=== PATIENT | female | born 1955 | race Caucasian/White ===

== ENCOUNTER 2017-08-01 15:56 | Emergency (ER) | payer MEDICARE ==
[2017-08-01] MEDS ORDERED: ACETAMINOPHEN EXTRA STRENGTH 500 MG TABLET ONE ×2 (16:34→16:51)
[2017-08-01] MEDS ORDERED: CYCLOBENZAPRINE HCL 10 MG TABLET ONE (16:34)
[2017-08-01 17:47] LABS: BASOPHILS % (AUTO) 0.8 % (0.0-5.0); EOSINOPHILS % (AUTO) 0.3 % (0.0-8.0); HEMATOCRIT 33.9 % (36-48); LYMPHOCYTES % (AUTO) 23.3 % (21.0-51.0); MEAN CORPUSCULAR HEMOGLOBIN 28.4 pg (27.0-33.0); MEAN CORPUSCULAR HGB CONC 34.8 g/dL (32.0-36.0); MEAN CORPUSCULAR VOLUME 81.5 fL (79-99); MONOCYTES % (AUTO) 5.2 % (3.0-13.0); NEUTROPHILS % (AUTO) 70.4 % (40.0-77.0); PLATELET COUNT (AUTO) 489 K/uL (130-400); RED BLOOD CELL COUNT(AUTO) 4.16 MIL/uL (4.00-5.50); RED CELL DISTRIBUTION WIDTH 15.3 % (11.0-15.5); WHITE BLOOD COUNT (AUTO) 8.7 K/uL (4.8-10.8)
[2017-08-01 17:56] LABS: CREATININE 0.8 mg/dL (0.5-1.5); POTASSIUM 3.8 mmol/L (3.5-5.1)
[2017-08-01 17:58] LABS: INR 0.99 (0.85-1.15); PARTIAL THROMBOPLASTIN TIME 29.3 SEC (26.3-35.5); PROTHROMBIN TIME 10.4 SEC (9.6-11.6)
[2017-08-01 18:01] LABS: ALBUMIN 4.2 g/dL (3.5-5.0); BILIRUBIN,TOTAL 0.3 mg/dL (0.2-1.0); TOTAL PROTEIN, SERUM 7.7 g/dL (6.0-8.3)
[2017-08-01] MEDS ORDERED: LABETALOL HCL 5 MG/ML 20ML VIAL IV ONE (18:28)
== END 2017-08-01 19:12 | disposition home or self-care (01) ==
LOC: EDH 15:56
DX: G89.29 Other chronic pain (principal); M54.5 Low back pain; M54.6 Pain in thoracic spine; I10 Essential (primary) hypertension; E78.5 Hyperlipidemia, unspecified; Z72.0 Tobacco use; Y08.89XA Assault by other specified means, initial encounter; Y93.89 Activity, other specified; Y92.59 Other trade areas as the place of occurrence of the external cause; Y99.8 Other external cause status
CPT/HCPCS: 36415; 72125; 72128; 72131; 80053; 85025; 85610; 85730; 96374; 99285; J3490

== ENCOUNTER 2017-11-13 17:39 | Emergency (ER) | payer MEDICARE ==
[2017-11-13 18:10] LABS: BASOPHILS % (AUTO) 0.5 % (0.0-5.0); EOSINOPHILS % (AUTO) 1.9 % (0.0-8.0); HEMATOCRIT 29.1 % (36-48); LYMPHOCYTES % (AUTO) 20.6 % (21.0-51.0); MEAN CORPUSCULAR HEMOGLOBIN 27.3 pg (27.0-33.0); MEAN CORPUSCULAR HGB CONC 32.7 g/dL (32.0-36.0); MEAN CORPUSCULAR VOLUME 83.5 fL (79-99); MONOCYTES % (AUTO) 8.1 % (3.0-13.0); NEUTROPHILS % (AUTO) 68.9 % (40.0-77.0); PLATELET COUNT (AUTO) 291 K/uL (130-400); RED BLOOD CELL COUNT(AUTO) 3.48 MIL/uL (4.00-5.50); RED CELL DISTRIBUTION WIDTH 15.5 % (11.0-15.5); WHITE BLOOD COUNT (AUTO) 6.5 K/uL (4.8-10.8)
[2017-11-13 18:28] LABS: CREATININE 1.5 mg/dL (0.5-1.5)
[2017-11-13] MEDS ORDERED: DEXAMETHASONE SOD PHOSPHATE 4 MG/ML 1ML VIAL ONE (18:56)
[2017-11-13] MEDS ORDERED: KETOROLAC TROMETHAMINE 60 MG/2 ML VIAL ONE (18:56)
[2017-12-08] MEDS ORDERED: ALBUHFA IH (13:42)
[2017-12-08] MEDS ORDERED: UMEC1DIS IH (13:42)
[2017-12-08] MEDS ORDERED: CYCL10TA7 PO (13:48)
[2017-12-08] MEDS ORDERED: LOSA50TA37 PO (13:48)
[2017-12-08] MEDS ORDERED: LANS30CA55 PO (13:48)
[2017-12-08] MEDS ORDERED: CYPR4TAB46 PO (13:48)
[2017-12-08] MEDS ORDERED: IBUP-2077 PO (13:48)
[2017-12-08] MEDS ORDERED: MONT10TA24 PO (13:48)
[2017-12-08] MEDS ORDERED: [UNRECOGNIZED DRUG - CODE] PO (14:07)
[2017-12-08] MEDS ORDERED: TEMA30CA PO (14:12)
[2017-12-08] MEDS ORDERED: FERR-82 PO (14:12)
[2017-12-08] MEDS ORDERED: ALPR1TAB7 PO (14:12)
[2017-12-08] MEDS ORDERED: BUSP30TA2 PO (14:12)
[2017-12-08] MEDS ORDERED: INDO25CA16 PO (14:12)
== END 2017-11-13 19:45 | disposition home or self-care (01) ==
LOC: EDH 17:39
DX: G89.29 Other chronic pain (principal); M54.5 Low back pain; E78.5 Hyperlipidemia, unspecified; I10 Essential (primary) hypertension; Z72.0 Tobacco use
CPT/HCPCS: 36415; 80048; 85025; 96372 ×2; 99284; J1100; J1885

== ENCOUNTER 2017-11-15 18:00 | Emergency (ER) | payer MEDICARE ==
[2017-11-15] MEDS ORDERED: ACETAMINOPHEN EXTRA STRENGTH 500 MG TABLET ONE (18:26)
[2017-12-08] MEDS ORDERED: ALBUHFA IH (13:42)
[2017-12-08] MEDS ORDERED: UMEC1DIS IH (13:42)
[2017-12-08] MEDS ORDERED: LANS30CA55 PO (13:48)
[2017-12-08] MEDS ORDERED: IBUP-2077 PO (13:48)
[2017-12-08] MEDS ORDERED: CYCL10TA7 PO (13:48)
[2017-12-08] MEDS ORDERED: MONT10TA24 PO (13:48)
[2017-12-08] MEDS ORDERED: LOSA50TA37 PO (13:48)
[2017-12-08] MEDS ORDERED: CYPR4TAB46 PO (13:48)
[2017-12-08] MEDS ORDERED: [UNRECOGNIZED DRUG - CODE] PO (14:07)
[2017-12-08] MEDS ORDERED: BUSP30TA2 PO (14:12)
[2017-12-08] MEDS ORDERED: INDO25CA16 PO (14:12)
[2017-12-08] MEDS ORDERED: FERR-82 PO (14:12)
[2017-12-08] MEDS ORDERED: TEMA30CA PO (14:12)
[2017-12-08] MEDS ORDERED: ALPR1TAB7 PO (14:12)
== END 2017-11-15 19:08 | disposition home or self-care (01) ==
LOC: EDH 18:00
DX: G89.29 Other chronic pain (principal); M54.9 Dorsalgia, unspecified; Z76.5 Malingerer [conscious simulation]; I10 Essential (primary) hypertension; E78.5 Hyperlipidemia, unspecified; Z88.2 Allergy status to sulfonamides; Z72.0 Tobacco use
CPT/HCPCS: 99282

== ENCOUNTER 2017-11-26 14:11 | Emergency (ER) | payer MEDICARE ==
[2017-11-26] MEDS ORDERED: SODIUM CHLORIDE 0.9% 1000ML 1,000 ML IV ONE (14:21)
[2017-11-26 14:33] LABS: BASOPHILS % (AUTO) 0.7 % (0.0-5.0); EOSINOPHILS % (AUTO) 0.9 % (0.0-8.0); HEMATOCRIT 31.7 % (36-48); LYMPHOCYTES % (AUTO) 19.5 % (21.0-51.0); MEAN CORPUSCULAR HEMOGLOBIN 28.4 pg (27.0-33.0); MEAN CORPUSCULAR HGB CONC 34.9 g/dL (32.0-36.0); MEAN CORPUSCULAR VOLUME 81.4 fL (79-99); MONOCYTES % (AUTO) 5.7 % (3.0-13.0); NEUTROPHILS % (AUTO) 73.2 % (40.0-77.0); PLATELET COUNT (AUTO) 454 K/uL (130-400); RED CELL DISTRIBUTION WIDTH 15.6 % (11.0-15.5); WHITE BLOOD COUNT (AUTO) 8.8 K/uL (4.8-10.8)
[2017-11-26] MEDS ORDERED: KETOROLAC TROMETHAMINE 30MG/ML ONE (14:52)
[2017-12-08] MEDS ORDERED: ALBUHFA IH (13:42)
[2017-12-08] MEDS ORDERED: UMEC1DIS IH (13:42)
[2017-12-08] MEDS ORDERED: IBUP-2077 PO (13:48)
[2017-12-08] MEDS ORDERED: MONT10TA24 PO (13:48)
[2017-12-08] MEDS ORDERED: LOSA50TA37 PO (13:48)
[2017-12-08] MEDS ORDERED: LANS30CA55 PO (13:48)
[2017-12-08] MEDS ORDERED: CYPR4TAB46 PO (13:48)
[2017-12-08] MEDS ORDERED: CYCL10TA7 PO (13:48)
[2017-12-08] MEDS ORDERED: [UNRECOGNIZED DRUG - CODE] PO (14:07)
[2017-12-08] MEDS ORDERED: FERR-82 PO (14:12)
[2017-12-08] MEDS ORDERED: INDO25CA16 PO (14:12)
[2017-12-08] MEDS ORDERED: BUSP30TA2 PO (14:12)
[2017-12-08] MEDS ORDERED: ALPR1TAB7 PO (14:12)
[2017-12-08] MEDS ORDERED: TEMA30CA PO (14:12)
== END 2017-11-26 17:33 | disposition home or self-care (01) ==
LOC: EDH 14:11
DX: T67.5XXA Heat exhaustion, unspecified, initial encounter (principal); G89.29 Other chronic pain; R51 Headache; I10 Essential (primary) hypertension; E78.5 Hyperlipidemia, unspecified; Z88.0 Allergy status to penicillin; Z88.2 Allergy status to sulfonamides; Z88.8 Allergy status to other drugs, medicaments and biological substances; X58.XXXA Exposure to other specified factors, initial encounter; Y93.89 Activity, other specified; Y92.89 Other specified places as the place of occurrence of the external cause; Y99.8 Other external cause status
CPT/HCPCS: 36415; 80048; 82550; 85025; 96374; 99284; J1885; J7030; 96361

== ENCOUNTER 2018-06-07 12:45 | Emergency (ER) | payer MEDICARE ==
[~2018-06-07 12:45] MED LIST: ALBUHFA IH; ALPR1TAB7 PO; BUSP30TA2 PO; CYCL10TA7 PO; CYPR4TAB46 PO; FERR-82 PO; IBUP-2077 PO; INDO25CA16 PO; LANS30CA55 PO; LOSA50TA64 PO; MONT10TA24 PO; TEMA30CA PO; UMEC1DIS IH; [UNRECOGNIZED DRUG - CODE] PO
[2018-06-07] MEDS ORDERED: KETOROLAC TROMETHAMINE 30MG/ML ONE (14:04)
== END 2018-06-07 14:39 | disposition home or self-care (01) ==
LOC: EDH 12:45
DX: M79.7 Fibromyalgia (principal); I10 Essential (primary) hypertension; E78.5 Hyperlipidemia, unspecified; Z88.0 Allergy status to penicillin; Z88.2 Allergy status to sulfonamides; Z88.8 Allergy status to other drugs, medicaments and biological substances; Z72.0 Tobacco use; Z98.890 Other specified postprocedural states
CPT/HCPCS: 96372; 99283; J1885